=== PATIENT | male | born 1935 | race Hispanic/Latino ===

== ENCOUNTER 2019-03-31 06:33 | Day surgery (SDC) | payer MEDICARE ==
[2019-03-29 14:04] LABS: BASOPHILS % (AUTO) 0.4 % (0.0-5.0); EOSINOPHILS % (AUTO) 3.4 % (0.0-8.0); HEMATOCRIT 36.1 % (42-54); LYMPHOCYTES % (AUTO) 22.8 % (21.0-51.0); MEAN CORPUSCULAR HEMOGLOBIN 31.9 pg (27.0-33.0); MEAN CORPUSCULAR HGB CONC 31.6 g/dL (32.0-36.0); MEAN CORPUSCULAR VOLUME 101.1 fL (79-99); MONOCYTES % (AUTO) 13.6 % (3.0-13.0); NEUTROPHILS % (AUTO) 59.5 % (40.0-77.0); PLATELET COUNT (AUTO) 130 K/uL (130-400); RED BLOOD CELL COUNT(AUTO) 3.57 MIL/uL (4.50-6.20); RED CELL DISTRIBUTION WIDTH 12.3 % (11.0-15.5); WHITE BLOOD COUNT (AUTO) 6.7 K/uL (4.8-10.8)
[2019-03-29 14:13] LABS: CREATININE 1.8 mg/dL (0.5-1.5); POTASSIUM 4.6 mmol/L (3.5-5.1)
[2019-03-29 14:35] VITALS: BP 144/83
[2019-03-29 14:47] LABS: INR 2.15 (0.85-1.15); PARTIAL THROMBOPLASTIN TIME 38.7 SEC (26.3-35.5); PROTHROMBIN TIME 21.9 SEC (9.6-11.6)
--- NOTE | 2019-03-30 16:00 | NUR ---
LABS INFORMED LISA SCHOFIELD OF ABNORMAL BUN/CREA/PT/PTT. ORDERS RECEIVED TO REDRAW PT/PTT ON AM OF PROCEDURE.
[2019-03-31] VITALS (11 sets, daily range): BP systolic 109–140; BP diastolic 63–87
[~2019-03-31] VITALS: Ht 180.3 cm; Wt 90.7 kg
[~2019-03-31 06:33] MED LIST: ASPI-555 PO; DOXA4TAB3 PO; FINA5TAB41 PO; FURO40TA5 PO; METO-408 PO; RAMI5CAP66 PO; ROSU20TA31 PO; SODIUM CHLORIDE 0.9% 1000ML 1,000 ML IV SCH; WARF4TAB72 PO
[2019-03-31 07:08] LABS: INR 1.52 (0.85-1.15); PARTIAL THROMBOPLASTIN TIME 32.3 SEC (26.3-35.5); PROTHROMBIN TIME 15.7 SEC (9.6-11.6)
--- NOTE | 2019-03-31 07:44 | NUR ---
REPORTED PT (15.7) AND INR (1.52) TO CHANDNI GONGORA TO PROCEED WITH PROCEDURE. NO NEW ORDERS GIVEN
[2019-03-31] MEDS ORDERED: CEFAZOLIN SODIUM 1 GM VIAL ONE (12:13)
[2019-03-31] MEDS ORDERED: BUPIVACAINE/PF 0.25% 30ML VIAL IJ ONE (12:13)
[2019-03-31] MEDS ORDERED: MEPERIDINE-PF 25 MG/ML SYG ONE ×2 (12:14→13:04)
[2019-03-31] MEDS ORDERED: MIDAZOLAM HCL 1 MG/ML 2ML VIAL ONE ×2 (12:14→13:04)
[2019-03-31] MEDS ORDERED: LIDOCAINE HCL 1% MDV 50ML VIAL ONE (12:14)
[2019-03-31] MEDS ORDERED: THROMBIN-JMI 5000 UNIT/VIAL TP ONE (13:32)
[2019-03-31] MEDS ORDERED: ONDANSETRON HCL 4 MG/2 ML VIAL IV PRN (14:30)
[2019-03-31] MEDS ORDERED: ACETAMINOPHEN-CODEINE 300/30MG TAB PO PRN ×2 (14:30)
== END 2019-03-31 18:42 | disposition home or self-care (01) ==
LOC: DAH 06:33
PROVIDERS: ATTEND Internal Medicine Cardiovascular Disease
DX: Z45.02 Encounter for adjustment and management of automatic implantable cardiac defibrillator (principal); I11.0 Hypertensive heart disease with heart failure; I50.9 Heart failure, unspecified; E78.5 Hyperlipidemia, unspecified; I25.10 Atherosclerotic heart disease of native coronary artery without angina pectoris; I25.5 Ischemic cardiomyopathy; Z79.82 Long term (current) use of aspirin; Z79.899 Other long term (current) drug therapy; Z79.01 Long term (current) use of anticoagulants; Z98.890 Other specified postprocedural states; Z86.73 Personal history of transient ischemic attack (TIA), and cerebral infarction without residual deficits
CPT/HCPCS: 33264; 36415 ×2; 80048; 85025; 85610 ×2; 85730 ×2; 93005; A4215; A4216; A4221; A4222; A4223 ×3; A4606; A4663; C1882; J0690; J2175 ×2; J2250 ×2; J3490 ×3; 99156; 99157

== ENCOUNTER 2019-04-01 12:10 | Emergency (ER) | payer MEDICARE ==
[~2019-04-01 12:10] MED LIST changes: -SODIUM CHLORIDE 0.9% 1000ML 1,000 ML IV SCH
[2019-04-01 13:07] LABS: BASOPHILS % (AUTO) 0.4 % (0.0-5.0); EOSINOPHILS % (AUTO) 1.8 % (0.0-8.0); HEMATOCRIT 36.4 % (42-54); MEAN CORPUSCULAR HEMOGLOBIN 31.8 pg (27.0-33.0); MEAN CORPUSCULAR HGB CONC 32.1 g/dL (32.0-36.0); MEAN CORPUSCULAR VOLUME 98.9 fL (79-99); MONOCYTES % (AUTO) 14.5 % (3.0-13.0); PLATELET COUNT (AUTO) 138 K/uL (130-400); RED BLOOD CELL COUNT(AUTO) 3.68 MIL/uL (4.50-6.20); RED CELL DISTRIBUTION WIDTH 12.3 % (11.0-15.5); WHITE BLOOD COUNT (AUTO) 7.2 K/uL (4.8-10.8)
[2019-04-01 13:24] LABS: ALBUMIN 3.7 g/dL (3.5-5.0); BILIRUBIN,TOTAL 0.7 mg/dL (0.2-1.0); CREATININE 2.3 mg/dL (0.5-1.5); POTASSIUM 4.3 mmol/L (3.5-5.1)
[2019-04-01 13:26] LABS: INR 1.24 (0.85-1.15); PARTIAL THROMBOPLASTIN TIME 29.1 SEC (26.3-35.5); PROTHROMBIN TIME 12.9 SEC (9.6-11.6)
== END 2019-04-01 15:54 | disposition home or self-care (01) ==
LOC: EDH 12:10
DX: Z48.01 Encounter for change or removal of surgical wound dressing (principal); I10 Essential (primary) hypertension; I48.91 Unspecified atrial fibrillation; Z95.0 Presence of cardiac pacemaker; Z87.891 Personal history of nicotine dependence
CPT/HCPCS: 36415; 71045; 80053; 82550; 84484; 85025; 85610; 85730; 93005